=== PATIENT | male | born 1980 | race Native Hawaiian/Other Pacific Islander ===

== ENCOUNTER 2018-07-03 13:56 | Emergency (ER) | payer OTHER ==
[~2018-07-03] VITALS: Ht 177.8 cm; Wt 77.1 kg
[2018-07-03 15:52] LABS: PLATELET COUNT 401 K/uL (142-355)
[2018-07-03 16:00] LABS: POTASSIUM 3.6 mmol/L (3.6-5.2); SODIUM 135 mmol/L (136-145)
[2018-07-03 17:25] VITALS: BP 132/87; TEMP 98.2
== END 2018-07-03 17:25 | disposition home or self-care (01) ==
LOC: ED 13:56
PROVIDERS: Emergency Medicine
DX: F10.10 Alcohol abuse, uncomplicated (principal)
CPT/HCPCS: 36415; 80053; 80307; 80320; 80329; 81000; 82150; 82550; 83690; 84484; 85027; 93005; 96360; 99285

== ENCOUNTER 2018-07-08 23:23 | Emergency (ER) | payer OTHER ==
[~2018-07-08] VITALS: Ht 180.3 cm; Wt 77.1 kg
[2018-07-08 23:45] VITALS: BP 144/96; TEMP 98.3
== END 2018-07-09 00:05 | disposition home or self-care (01) ==
LOC: ED 23:23
DX: R07.89 Other chest pain (principal); R03.0 Elevated blood-pressure reading, without diagnosis of hypertension
CPT/HCPCS: 99281